=== PATIENT | female | born 1940 | race Caucasian/White ===

== ENCOUNTER 2017-05-01 17:46 | Inpatient (IN) ==
[2017-05-01] MEDS ORDERED: MORPHINE 2 MG/1 ML SYRINGE IV STA (18:30)
[2017-05-01] MEDS ORDERED: ONDANSETRON 4 MG/2 ML VIAL IV STA (18:37)
[2017-05-01] MEDS ORDERED: ONDANSETRON 4 MG/2 ML VIAL IV PRN (18:43)
[2017-05-01] MEDS ORDERED: MORPHINE 2 MG/1 ML SYRINGE IV PRN (18:43)
[2017-05-01] MEDS ORDERED: ONDANSETRON 4 MG/2 ML VIAL ONE (19:32)
[2017-05-01] MEDS ORDERED: MORPHINE 2 MG/1 ML SYRINGE ONE (19:32)
[2017-05-01 21:11] LABS: Hematocrit 36.5 VOL% (35.7-47.0); Hemoglobin 12.1 GM/DL (12.0-16.0); Mean Corpuscular Hemoglobin 30 PG (27-34); Mean Corpuscular Volume 89.9 FL (87-102); Red Blood Count 4.06 MC/CUMM (3.8-5.5); White Blood Count 6.2 T/CUMM (4-12)
[2017-05-01 21:12] LABS: Basophils % 0.2 % (0.0-0.8); Eosinophils % 0.5 % (0.00-10.9); Immature Granulocytes % 0.5 %; Immature Granulocytes Absolute 0.03 #; Lymphocytes % 16.6 % (21.3-54.2); Mean Corpuscular HGB Conc 33.2 GM/DL (32-36); Mean Platelet Volume 10.5 FL (9.6-12.0); Monocytes # 0.4 10*3/uL (0.11-0.8); Monocytes % 6.3 % (1.7-12.7); Neutrophils # 4.7 10*3/uL (1.4-7.4); Neutrophils % 75.9 % (38.7-73.9); Platelet Count 156 T/CUMM (130-400); Red Cell Distribution Width 13.1 % (9.3-17.3)
[2017-05-01 21:20] LABS: INR 1.4; PT Patient Result 14.2 SECS
[2017-05-01] MEDS ORDERED: ENOXAPARIN 30 MG/0.3 ML SYRINGE SUBCUT SCH (21:30)
[2017-05-01 21:33] LABS: Albumin 3.5 G/DL (3.4-5.0); Bilirubin,Total 0.9 MG/DL (0.2-1.0); Calcium 9.1 MG/DL (8.5-10.1); Osmolality,Calculated 277.5 MOS/KG (273-304); Potassium 4.7 MMOL/L (3.5-5.1); Total Protein 6.5 G/DL (6.4-8.3)
[2017-05-01] MEDS ORDERED: ENOXAPARIN 80 MG/0.8 ML SYRINGE SUBCUT SCH (22:00)
[2017-05-01] MEDS: DEXTROSE 5% NACL 0.45% 1,000 ML IV SCH (22:27)
[2017-05-01] MEDS: POTASSIUM CHLORIDE 20 MEQ TABLET PO SCH (22:27)
[2017-05-02] MEDS ORDERED: INFLUENZA VIRUS VACCINE 0.5 ML SYRINGE IM ONE (00:58)
[2017-05-02] MEDS ORDERED: PNEUMOCOCCAL VACCINE (13 VALENT) 0.5 ML SYRINGE IM ONE (00:58)
[2017-05-02 05:29] LABS: Basophils % 0.5 % (0.0-0.8); Eosinophils % 0.9 % (0.00-10.9); Hematocrit 32.9 VOL% (35.7-47.0); Hemoglobin 10.8 GM/DL (12.0-16.0); Immature Granulocytes % 0.5 %; Immature Granulocytes Absolute 0.02 #; Lymphocytes # 1.1 10*3/uL (1.4-4.0); Lymphocytes % 24.4 % (21.3-54.2); Mean Corpuscular HGB Conc 32.8 GM/DL (32-36); Mean Corpuscular Hemoglobin 30 PG (27-34); Mean Corpuscular Volume 90.4 FL (87-102); Mean Platelet Volume 10.4 FL (9.6-12.0); Monocytes # 0.3 10*3/uL (0.11-0.8); Monocytes % 7.8 % (1.7-12.7); Neutrophils # 2.9 10*3/uL (1.4-7.4); Neutrophils % 65.9 % (38.7-73.9); Platelet Count 129 T/CUMM (130-400); Red Blood Count 3.64 MC/CUMM (3.8-5.5); Red Cell Distribution Width 13.1 % (9.3-17.3); White Blood Count 4.4 T/CUMM (4-12)
[2017-05-02 05:30] LABS: Calcium 8.1 MG/DL (8.5-10.1); Osmolality,Calculated 277.7 MOS/KG (273-304)
[2017-05-02 05:32] LABS: INR 1.3
[2017-05-02] MEDS: DEXTROSE 5% NACL 0.45% 1,000 ML IV SCH ×3 (05:53→22:08)
[2017-05-02] MEDS ORDERED: ceFAZolin 1,000 MG in SYRINGE 1 EACH IV ONE (06:59)
[2017-05-02] MEDS ORDERED: VANCOMYCIN INJ 1,000 MG in SODIUM CHLORIDE 0.9% 250 ML IV ONE (08:00)
[2017-05-02] MEDS: PANTOPRAZOLE 20 MG TABLET PO SCH (10:28)
[2017-05-02] MEDS: DILTIAZEM CD 180 MG CAPSULE PO SCH (10:29)
[2017-05-02] MEDS ORDERED: SODIUM CHLORIDE 0.9% 50 ML IV ONE (11:49)
[2017-05-02] MEDS ORDERED: BACITRACIN OINT 0.9 GM PACK TOP ONE (15:50)
[2017-05-02] MEDS ORDERED: PROPOFOL 200 MG/20 ML VIAL IV ONE (17:26)
[2017-05-02] MEDS ORDERED: SEVOFLURANE 1 UNIT/15 MINUTE INH ONE (17:27)
[2017-05-02] MEDS ORDERED: fentaNYL 100 MCG/2 ML VIAL ONE ×2 (17:27)
[2017-05-02] MEDS ORDERED: ONDANSETRON 4 MG/2 ML VIAL ONE (17:28)
[2017-05-02] MEDS ORDERED: ETOMIDATE 40 MG/20 ML VIAL IV ONE (17:28)
[2017-05-02] MEDS ORDERED: ROCURONIUM 100 MG/10 ML VIAL IV ONE (17:28)
[2017-05-02] MEDS ORDERED: GLYCOPYRROLATE 0.4 MG/2 ML VIAL ONE (17:33)
[2017-05-02] MEDS ORDERED: NEOSTIGMINE 10 MG/10 ML VIAL ONE (17:33)
[2017-05-02] MEDS: LEVOTHYROXINE 50 MCG TABLET PO SCH (17:51)
[2017-05-02] MEDS: POTASSIUM CHLORIDE 20 MEQ TABLET PO SCH ×2 (17:51→21:56)
[2017-05-02] MEDS: KETOROLAC 15 MG/1 ML VIAL IV SCH (19:50)
[2017-05-02] MEDS: ACETAMINOPHEN 500 MG TABLET PO SCH (21:56)
[2017-05-02] MEDS: ATORVASTATIN 40 MG TABLET PO SCH (21:57)
[2017-05-02] MEDS: ceFAZolin 1,000 MG in SYRINGE 1 EACH IV SCH (22:03)
[2017-05-03] MEDS: KETOROLAC 15 MG/1 ML VIAL IV SCH ×3 (00:22→12:17)
[2017-05-03] MEDS: ACETAMINOPHEN 500 MG TABLET PO SCH ×3 (03:03→15:13)
[2017-05-03] MEDS: DEXTROSE 5% NACL 0.45% 1,000 ML IV SCH (03:03)
[2017-05-03] MEDS: ceFAZolin 1,000 MG in SYRINGE 1 EACH IV SCH ×3 (05:33→21:05)
[2017-05-03 06:18] LABS: Basophils % 0.3 % (0.0-0.8); Eosinophils # 0.1 10*3/uL (0.0-0.87); Eosinophils % 0.8 % (0.00-10.9); Hematocrit 31.1 VOL% (35.7-47.0); Hemoglobin 10.2 GM/DL (12.0-16.0); Immature Granulocytes % 0.5 %; Immature Granulocytes Absolute 0.03 #; Lymphocytes # 0.7 10*3/uL (1.4-4.0); Lymphocytes % 11.6 % (21.3-54.2); Mean Corpuscular HGB Conc 32.8 GM/DL (32-36); Mean Corpuscular Hemoglobin 29 PG (27-34); Mean Corpuscular Volume 89.6 FL (87-102); Mean Platelet Volume 10.2 FL (9.6-12.0); Monocytes # 0.5 10*3/uL (0.11-0.8); Monocytes % 8.4 % (1.7-12.7); Neutrophils % 78.4 % (38.7-73.9); Platelet Count 116 T/CUMM (130-400); Red Blood Count 3.47 MC/CUMM (3.8-5.5); Red Cell Distribution Width 13.3 % (9.3-17.3); White Blood Count 6.3 T/CUMM (4-12)
[2017-05-03 06:29] LABS: INR 1.3
[2017-05-03] MEDS: LEVOTHYROXINE 50 MCG TABLET PO SCH (06:30)
[2017-05-03 06:36] LABS: Calcium 7.6 MG/DL (8.5-10.1); Osmolality,Calculated 276.7 MOS/KG (273-304)
[2017-05-03] MEDS: DILTIAZEM CD 180 MG CAPSULE PO SCH (08:53)
[2017-05-03] MEDS: POTASSIUM CHLORIDE 20 MEQ TABLET PO SCH ×2 (08:54→21:01)
[2017-05-03] MEDS: PANTOPRAZOLE 20 MG TABLET PO SCH (08:54)
[2017-05-03] MEDS: WARFARIN 1 MG TABLET PO SCH (17:28)
[2017-05-03] MEDS ORDERED: ERGOCALCIFEROL 50,000 UNIT CAPSULE PO SCH (20:02)
[2017-05-03] MEDS: ATORVASTATIN 40 MG TABLET PO SCH (21:01)
[2017-05-04] MEDS: ceFAZolin 1,000 MG in SYRINGE 1 EACH IV SCH ×3 (05:29→20:41)
[2017-05-04 05:47] LABS: Basophils % 0.3 % (0.0-0.8); Eosinophils # 0.1 10*3/uL (0.0-0.87); Eosinophils % 0.8 % (0.00-10.9); Hematocrit 30.1 VOL% (35.7-47.0); Immature Granulocytes % 0.8 %; Immature Granulocytes Absolute 0.05 #; Lymphocytes # 0.8 10*3/uL (1.4-4.0); Lymphocytes % 13.2 % (21.3-54.2); Mean Corpuscular HGB Conc 33.2 GM/DL (32-36); Mean Corpuscular Hemoglobin 30 PG (27-34); Mean Corpuscular Volume 90.4 FL (87-102); Mean Platelet Volume 10.5 FL (9.6-12.0); Monocytes # 0.5 10*3/uL (0.11-0.8); Monocytes % 7.8 % (1.7-12.7); Neutrophils # 4.9 10*3/uL (1.4-7.4); Neutrophils % 77.1 % (38.7-73.9); Platelet Count 102 T/CUMM (130-400); Red Blood Count 3.33 MC/CUMM (3.8-5.5); Red Cell Distribution Width 13.5 % (9.3-17.3); White Blood Count 6.3 T/CUMM (4-12)
[2017-05-04 05:50] LABS: INR 1.3; PT Patient Result 13.6 SECS
[2017-05-04] MEDS: LEVOTHYROXINE 50 MCG TABLET PO SCH (06:15)
[2017-05-04] MEDS: PANTOPRAZOLE 20 MG TABLET PO SCH (09:06)
[2017-05-04] MEDS: POTASSIUM CHLORIDE 20 MEQ TABLET PO SCH ×2 (09:06→20:40)
[2017-05-04] MEDS: MAGNESIUM HYDROXIDE SUSP 30 ML UDCUP PO PRN ×2 (09:06→20:40)
[2017-05-04] MEDS: DILTIAZEM CD 180 MG CAPSULE PO SCH (09:09)
[2017-05-04] MEDS: WARFARIN 1 MG TABLET PO SCH (17:21)
[2017-05-04] MEDS ORDERED: WARFARIN 1 MG TABLET PO SCH (18:00)
[2017-05-04] MEDS: ATORVASTATIN 40 MG TABLET PO SCH (20:40)
[2017-05-05] MEDS: ceFAZolin 1,000 MG in SYRINGE 1 EACH IV SCH ×2 (05:55→13:15)
[2017-05-05 06:22] LABS: Basophils % 0.2 % (0.0-0.8); Eosinophils # 0.1 10*3/uL (0.0-0.87); Eosinophils % 0.8 % (0.00-10.9); Hematocrit 30.6 VOL% (35.7-47.0); Hemoglobin 10.1 GM/DL (12.0-16.0); Immature Granulocytes % 0.6 %; Immature Granulocytes Absolute 0.04 #; Lymphocytes # 1.1 10*3/uL (1.4-4.0); Mean Corpuscular Hemoglobin 30 PG (27-34); Mean Corpuscular Volume 90.3 FL (87-102); Mean Platelet Volume 10.5 FL (9.6-12.0); Monocytes # 0.6 10*3/uL (0.11-0.8); Monocytes % 9.5 % (1.7-12.7); Neutrophils # 4.5 10*3/uL (1.4-7.4); Neutrophils % 71.9 % (38.7-73.9); Platelet Count 101 T/CUMM (130-400); Red Blood Count 3.39 MC/CUMM (3.8-5.5); Red Cell Distribution Width 13.5 % (9.3-17.3); White Blood Count 6.2 T/CUMM (4-12)
[2017-05-05 06:26] LABS: INR 1.2; PT Patient Result 12.2 SECS
[2017-05-05] MEDS: LEVOTHYROXINE 50 MCG TABLET PO SCH (06:52)
[2017-05-05 06:56] LABS: Band Neutrophils 3 % (0-10); Hypochromasia 1+; Lymphocytes 12 % (20-55); Ovalocytes Few; Segmented Neutrophils 79 % (50-85); Total Cells Counted 100
[2017-05-05 06:57] LABS: Microcytosis 1+; Platelet Estimate Decreased
[2017-05-05] MEDS: PANTOPRAZOLE 20 MG TABLET PO SCH (09:31)
[2017-05-05] MEDS: POTASSIUM CHLORIDE 20 MEQ TABLET PO SCH ×2 (09:31→22:00)
[2017-05-05] MEDS: DILTIAZEM CD 180 MG CAPSULE PO SCH (09:31)
[2017-05-05 15:08] LABS: Apearance,Urine Slightly Hazy (Clear); Bilirubin,Urine Negative (Negative); Blood, Urine Moderate mg/dL (Negative); Glucose,Urine (UA) Negative (Negative); Ketones,Urine Negative (Negative); Mucus,Urine Occasional /LPF (Occasional); Nitrite,Urine Negative (Negative); Protein,Urine Negative; RBC,Urine 2 /HPF (0-4); Squamous Epithelial Cell,Urine Occasional /HPF (0-10); Urine Color Yellow (Yellow); Urine Urobilinogen < 2.0 EU/DL (0.2-1.0); WBC,Urine 3 /HPF (0-6)
[2017-05-05] MEDS ORDERED: diphenhydrAMINE CAP 25 MG CAPSULE PO PRN (18:43)
[2017-05-05] MEDS ORDERED: ACETAMINOPHEN 325 MG TABLET PO PRN (18:44)
[2017-05-05] MEDS: WARFARIN 1 MG TABLET PO SCH (19:20)
[2017-05-05] MEDS: ATORVASTATIN 40 MG TABLET PO SCH (22:00)
[2017-05-06] MEDS: ceFAZolin 1,000 MG in SYRINGE 1 EACH IV SCH ×3 (00:17→13:29)
[2017-05-06] MEDS: LEVOTHYROXINE 50 MCG TABLET PO SCH (06:28)
[2017-05-06 07:31] LABS: INR 1.3
[2017-05-06] MEDS: POTASSIUM CHLORIDE 20 MEQ TABLET PO SCH (09:22)
[2017-05-06] MEDS: PANTOPRAZOLE 20 MG TABLET PO SCH (09:23)
[2017-05-06] MEDS: DILTIAZEM CD 180 MG CAPSULE PO SCH (09:23)
[2017-05-06 16:41] VITALS: BP 113/68
== END 2017-05-06 15:40 | disposition swing bed (61) | DRG 470 ==
LOC: EDUNIT# → EDBD → N.ED 17:46 → SUPCPDRO 18:43 → N.EDINP 18:43 → N.3E 19:43
PROVIDERS: ADMIT Orthopaedic Surgery; ATTEND Orthopaedic Surgery